=== PATIENT | male | born 1955 | race Two or more races ===

== ENCOUNTER 2017-01-28 11:11 | Inpatient (IN) | payer OTHER ==
--- NOTE | 2017-01-28 11:43 | PDOC ---
History of Present Illness - General History Source: Patient - History of Present Illness Initial Comments: 01/28/17 11:53 The patient is a 61-year-old male with a significant past medical history of hypertension and diabetes mellitus(non complaint with medications) who presents to the emergency department via EMS for further evaluation of altered mental status. As per EMS, the patient is homeless and was found inside someone's car. Patient's blood glucose was in the 300ss on the field and he was found to be hypertensive at 200/100 and upon ER arrival 190/90. As per patient, he knows his name and date of . He states that he is from [place] and was in [place] this morning. He states he walked to a school, looking for someone to charge his phone. He states that a school staff saw him and activated EMS. No other complaints. No fever, chills, generalized weakness. No chest pain, lightheadedness, dizziness, headache, visual changes. No cough, shortness of breath. No abdominal pain, nausea, vomiting, diarrhea. <Madeline Escobar - Last Filed: 01/28/17 14:44> <Mike Leiva - Last Filed: 01/28/17 14:48> - General Chief Complaint: Altered Mental Status Stated Complaint: Altered Mental Status Time Seen by Provider: 01/28/17 11:32 Past History <Madeline Escobar - Last Filed: 01/28/17 14:44> - Past Medical History Diabetes: Yes HTN: Yes - Immunization History Immunization Up to Date: Yes - Psycho/Social/Smoking Cessation Hx Suicidal Ideation: No Smoking History: Unknown if ever smoked Hx Alcohol Use: No Drug/Substance Use Hx: No <Mike Leiva - Last Filed: 01/28/17 14:48> - Past Medical History Allergies/Adverse Reactions: Allergies Allergy/AdvReac Type Severity Reaction Status Date / Time No Known Allergies Allergy Verified 01/28/17 11:21 Home Medications: Ambulatory Orders Unobtainable [Unobtainable] 01/28/17 Review of Systems - Review of Systems Able to Perform ROS?: Yes (limited by dementia) Constitutional: No: Chills, Fever Respiratory: No: Cough, Shortness of Breath Cardiac (ROS): No: Chest Pain, Lightheadedness ABD/GI: No: Diarrhea, Vomiting Neurological: No: Headache All Other Systems: Reviewed and Negative <Mike Leiva - Last Filed: 01/28/17 14:48> *Physical Exam - Vital Signs Last Vital Signs Temp Pulse Resp BP Pulse Ox 98.4 F 95 H 20 190/99 98 01/28/17 11:15 01/28/17 11:15 01/28/17 11:15 01/28/17 11:15 01/28/17 11:15 - Physical Exam Comments: 01/28/17 11:53 GENERAL: The patient is awake, alert. Jeans are cold and wet and smell of urine. HEAD: There is a healed surgical incisional scar in the parietal scalp. No bruising no abrasions no lacerations EYES: Pupils equal, round and reactive to light, extraocular movements intact, sclera anicteric, conjunctiva clear with no pallor. ENT: Ears normal, nares patent, oropharynx clear without exudates. Moist mucous membranes. NECK: Normal range of motion, supple without lymphadenopathy, JVD, or masses. LUNGS: Breath sounds equal, clear to auscultation bilaterally. No wheeze/ crackles. HEART: Regular rate and rhythm, normal S1 and S2 without murmur or rub. ABDOMEN: Soft/nontender/nondistended. BS wnl. No guarding or rebound. No palpable masses. No hepatosplenomegaly. EXTREMITIES: There is some discomfort is reproducbile with flexion of the left knee. No swelling, erythema or warmth. No focal bony tenderness. no edema. No clubbing or cyanosis. No cords. NEUROLOGICAL: Cranial nerves II through XII grossly intact. Normal speech. PSYCH: Normal mood, normal affect. SKIN: Warm, Dry, normal turgor, no rashes or lesions noted. <Madeline Escobar - Last Filed: 01/28/17 14:44> - Vital Signs Last Vital Signs Temp Pulse Resp BP Pulse Ox 98.4 F 95 H 20 190/99 98 01/28/17 11:15 01/28/17 11:15 01/28/17 11:15 01/28/17 11:15 01/28/17 11:15 <Mike Leiva - Last Filed: 01/28/17 14:48> Heart Score/ECG Review #1 ECG reviewed & interpreted by me at: 11:27 General ECG Interpretation: Sinus Rhythm, Normal Rate (90), Normal Intervals ( qtc 447, LVH), No acute ischemic changes (TWI III/AVF,) <Mike Leiva - Last Filed: 01/28/17 14:48> ED Treatment Course - LABORATORY CBC & Chemistry Diagram: 01/28/17 11:54 01/28/17 11:54 - RADIOLOGY Radiograph Interpretation: 01/28/17 14:42 EXAM: RAD/CHEST PA LAT IMPRESSION: Shallow inspiration. Uncoiled thoracic aorta. Prominent cardiac silhouette. No evidence of vascular congestion, pulmonary infiltrates, pleural effusion, or pneumothorax. No bulky hilar adenopathy is seen. EXAM: CT/HEAD CT WITHOUT CONTRAST IMPRESSION: Serial axial images of the brain were obtained from foramen magnum to the cranial vertex without intravenous contrast. The study was supplemented with computer-generated coronal and sagittal reconstruction images. Cap Coverer image was reviewed. There is no evidence of acute subarachnoid hemorrhage, acute intra -axial or extra-axial fluid collection consistent with subdural or epidural hematoma. No midline shift, herniation is present. Nonhemorrhagic hypodense late subacute to chronic lacunar infarct measuring 11 mm x 8.7 mm x 9.1 mm is seen in the anterior aspect of the right ganglia involving the anterior limb of right internal capsule, portion of the head of the caudate nucleus, adjacent putamen. There is no mass effect on the right frontal horn of lateral ventricle. On axial image #14, there is mild ipsilateral dilatation of the right frontal horn in comparison to the contralateral side. Normal swanson matter white matter differentiation. Cortical sulci sylvian fissures, perimesencephalic cisterns are not effaced. Loss of volume of the brain parenchyma with age-related involutional changes. Examination of the bone windows show no fracture. Mucosal thickening is observed in the right maxillary sinus with small air-fluid level. The visualized remaining paranasal sinuses and mastoid air cells are clear. <Madeline Escobar - Last Filed: 01/28/17 14:44> - LABORATORY CBC & Chemistry Diagram: 01/28/17 11:54 01/28/17 11:54 <Mike Leiva - Last Filed: 01/28/17 14:48> Medical Decision Making - Medical Decision Making 01/28/17 14:[address] Mckoy. 01/28/17 14:[address] Mckoy. Immediate response. Case was discussed. <Madeline Escobar - Last Filed: 01/28/17 14:44> - Medical Decision Making 01/28/17 12:44 A portion of this note was documented by scribe services under my direction. I have reviewed the details of the note, within reason, and agree with the documentation with the following case summary and management plan written by me. 61-year-old male reported history of diabetes and probable dementia brought in by EMS after found on street. Patient is not oriented, unable to give consistent story stating he lives in [place] but has been in [place] and was in a car to charge his cell phone. He has no complaints other than chronic L knee pain. VSS but elevated BP. exam nonfocal, slightly unkempt with wet/cold jeans that smell of urine neuro intact 61-year-old male with possible altered mental status, question underlying dementia. No evidence of trauma on exam, generally well-appearing but unkempt. Labs, urinalysis CT head, chest x-ray EKG EMS and [employer] contacted family in the area, who are on their way. Will obtain collateral history 01/28/17 13:23 White count 12.5, dehydration with presumed acute renal insufficiency with BUN of 44, creatinine 2.2, mild hyponatremia and hypochloremia. Troponin 0.08, slightly elevated alkaline phosphatase. Receiving IV fluids, awaiting CT head and chest x-ray, will require admission. 01/28/17 14:47 CT head and CXR wnl. Receiving IV fluids. Accepted for inpatient med/surg by Dr. Mckoy, weapons officer for medicine. <Mike Leiva - Last Filed: 01/28/17 14:48> *DC/Admit/Observation/Transfer - Attestations Scribe Attestion: 01/28/17 12:38 Documentation prepared by Madeline Escobar, acting as medical writer for Mike Leiva MD. <Madeline Escobar - Last Filed: 01/28/17 14:44> - Discharge Dispostion Admit: Yes <Mike Leiva - Last Filed: 01/28/17 14:48> Diagnosis at time of Disposition: Alteration consciousness, Acute renal insufficiency, Elevated troponin level - Discharge Dispostion Condition at time of disposition: Fair
[2017-01-28] MEDS ORDERED: SODIUM CHLORIDE 1,000 ML IV ONE (11:56)
[2017-01-28 12:20] LABS: BASOPHIL 0.6 % (0-2.0); MCHC 32.9 g/dl (32.0-35.9); MEAN CELL VOLUME 88.3 fl (80-96); MEAN PLT VOLUME 10.3 fl (7.5-11.1); NEUTROPHILS 85.8 % (42.8-82.8); PLATELET COUNT 212 K/MM3 (134-434); RDW 14.5 % (11.9-15.9); WHITE BLOOD COUNT 12.5 K/mm3 (4.0-10.0)
[2017-01-28 12:33] LABS: INR 0.98 (0.82-1.09); PROTHROMBIN TIME (PATIENT) 10.8 SEC (9.98-11.88)
[2017-01-28 13:00] LABS: BILIRUBIN,TOTAL 0.7 mg/dL (0.2-1.0); CALCIUM 8.9 mg/dL (8.5-10.1); CREATININE 2.2 mg/dL (0.7-1.3); TOT PROT 6.7 g/dl (6.4-8.2)
[2017-01-28 13:01] LABS: TROPONIN I 0.08 ng/ml (0.00-0.05)
[2017-01-28] MEDS ORDERED: ASPIRIN 81 MG CHEWABLE TABLETS PO ONE (14:17)
[2017-01-28] MEDS ORDERED: ASPIRIN 81 MG CHEWABLE TABLETS ONE (14:37)
--- NOTE | 2017-01-28 16:04 | EKG ---
Test Reason : Blood Pressure : / mmHG Vent. Rate : 090 BPM Atrial Rate : 090 BPM P-R Int : 176 ms QRS Dur : 090 ms QT Int : 366 ms P-R-T Axes : 065 023 -11 degrees QTc Int : 447 ms NORMAL SINUS RHYTHM MODERATE VOLTAGE CRITERIA FOR LVH, MAY BE NORMAL VARIANT T WAVE ABNORMALITY, CONSIDER INFERIOR ISCHEMIA ABNORMAL ECG NO PREVIOUS ECGS AVAILABLE Confirmed by MEKHI OLIVEROS MD ([id number]) on 01/28/2017 4:04:30 PM Referred By: Confirmed By:MEKHI OLIVEROS MD
[2017-01-28 17:43] VITALS: BMI 23.3
--- NOTE | 2017-01-28 19:57 | HP ---
[id number] History of Present Illness: 61-year-old male with a significant past medical history of hypertension and diabetes mellitus(non complaint with medications) who presents to the emergency department via EMS for further evaluation of altered mental status. As per EMS, the patient is homeless and was found inside someone's car. Patient's blood glucose was in the 300ss on the field and he was found to be hypertensive at 200 /100 and upon ER arrival 190/90. As per patient, he knows his name and date of . He states that he is from [place] and was in [place] this morning. He states he walked to a school, looking for someone to charge his phone. He states that a school staff saw him and activated EMS. No other complaints. - Past Medical History Cardiovascular: Yes: HTN Endocrine: Yes: Diabetes Mellitus - Smoking History Smoking history: Unknown if ever smoked - Alcohol/Substance Use Hx Alcohol Use: No Home Medications - Allergies Allergies/Adverse Reactions: Allergies Allergy/AdvReac Type Severity Reaction Status Date / Time No Known Allergies Allergy Verified 01/28/17 11:21 - Home Medications Home Medications: Ambulatory Orders Amlodipine Besylate [Norvasc -] 10 mg PO DAILY #30 tablet 01/31/17 Physical Examination Vital Signs: Vital Signs Temperature 98.2 F 01/28/17 19:00 Pulse Rate 88 01/28/17 19:00 Respiratory Rate 18 01/28/17 19:00 Blood Pressure 152/88 01/28/17 19:00 O2 Sat by Pulse Oximetry (%) 98 01/28/17 15:58 Constitutional: Yes: No Distress HENT: Yes: Atraumatic Neck: Yes: Supple Cardiovascular: Yes: Regular Rate and Rhythm Respiratory: Yes: CTA Bilaterally Gastrointestinal: Yes: Normal Bowel Sounds Extremities: Yes: WNL Neurological: Yes: Other (awake, talking) Problem List - Problems (1) Acute renal insufficiency Code(s): N28.9 - DISORDER OF KIDNEY AND URETER, UNSPECIFIED (2) Alteration consciousness Code(s): R40.4 - TRANSIENT ALTERATION OF AWARENESS Assessment/Plan Laboratory Tests 01/28/17 01/28/17 01/28/17 11:54 11:54 11:54 WBC 12.5 H RBC 4.94 Hgb 14.4 Hct 43.6 MCV 88.3 MCHC 32.9 RDW 14.5 Plt Count 212 MPV 10.3 Neutrophils % 85.8 H Lymphocytes % 11.1 Monocytes % 2.5 L Eosinophils % 0.0 Basophils % 0.6 INR 0.98 Sodium 133 L Potassium 5.1 Chloride 95 L Carbon Dioxide 22 Anion Gap 16 BUN 44 H Creatinine 2.2 H Creat Clearance w eGFR 30.38 Random Glucose 263 H Calcium 8.9 Total Bilirubin 0.7 AST 45 H ALT 24 Alkaline Phosphatase 124 H Creatine Kinase 541 H Creatine Kinase Index 2.5 CK-MB (CK-2) 13.730 H CK-MB (CK-2) Rel Index Troponin I 0.08 H Total Protein 6.7 Albumin 3.0 L 01/28/17 11:54 WBC RBC Hgb Hct MCV MCHC RDW Plt Count MPV Neutrophils % Lymphocytes % Monocytes % Eosinophils % Basophils % INR Sodium Potassium Chloride Carbon Dioxide Anion Gap BUN Creatinine Creat Clearance w eGFR Random Glucose Calcium Total Bilirubin AST ALT Alkaline Phosphatase Creatine Kinase Creatine Kinase Index CK-MB (CK-2) CK-MB (CK-2) Rel Index Cancelled Troponin I Total Protein Albumin 1.htn will start him on meds cardiology consult cardiac profile 2.dm? bgms insulin coverage fu labs social work consult dvt ppx
[2017-01-28 22:06] LABS: TROPONIN I 0.14 ng/ml (0.00-0.05)
[2017-01-28] MEDS: INSULIN SLIDING SCALE (NOVOLOG) 1 VIAL SQ SCH (22:11)
[2017-01-28 23:24] LABS: URINE APPEARANCE SLCLOUDY; URINE BILIRUBIN NEGATIVE (NEGATIVE); URINE BLOOD 1+ (NEGATIVE); URINE COLOR LTYELLOW; URINE GLUCOSE (UA) 3+ (NEGATIVE); URINE KETONE NEGATIVE (NEGATIVE); URINE LEUK ESTERASE NEGATIVE (NEGATIVE); URINE NITRITE NEGATIVE (NEGATIVE); URINE PROTEIN 2+ (NEGATIVE); URINE UROBILINOGEN NEGATIVE E.U./dl (0.2-1.0)
[2017-01-28 23:50] LABS: URINE HYALINE CAST 9 /lpf; URINE MUCUS RARE; URINE RBC 1 /hpf (0-3); URINE WBC 4 /hpf (3-5)
[2017-01-29] MEDS: INSULIN SLIDING SCALE (NOVOLOG) 1 VIAL SQ SCH ×4 (06:07→22:14)
[2017-01-29] MEDS ORDERED: amLODIPine BESYLATE 10 MG TABLET (FP) PO ONE (07:15)
[2017-01-29] MEDS ORDERED: PT OWN MED DRAWER 7, Y5N ONE (11:59)
[2017-01-29] MEDS ORDERED: INSULIN (NOVOLOG) ASPART 100 UNITS/ML 10ML VIAL ONE (11:59)
--- NOTE | 2017-01-29 18:55 | PN ---
Progress Note, Physician - Current Medication List Current Medications: Active Medications Amlodipine Besylate (Norvasc -) 10 mg PO DAILY [facility] Insulin Aspart (Novolog Vial Sliding Scale -) 1 vial SQ ACHS [facility] PRN Reason: Protocol Last Admin: 01/29/17 17:20 Dose: 8 unit - Objective Vital Signs: Vital Signs Temperature 98.5 F 01/29/17 18:34 Pulse Rate 96 H 01/29/17 18:34 Respiratory Rate 18 01/29/17 18:34 Blood Pressure 191/106 01/29/17 18:34 O2 Sat by Pulse Oximetry (%) 98 01/29/17 10:00 Constitutional: Yes: No Distress HENT: Yes: Atraumatic Neck: Yes: Supple Cardiovascular: Yes: Regular Rate and Rhythm Respiratory: Yes: CTA Bilaterally Gastrointestinal: Yes: Normal Bowel Sounds Extremities: Yes: WNL Labs: INR, PTT INR 0.98 (0.82-1.09) 01/28/17 11:54 Problem List - Problems (1) Acute renal insufficiency Code(s): N28.9 - DISORDER OF KIDNEY AND URETER, UNSPECIFIED (2) Alteration consciousness Code(s): R40.4 - TRANSIENT ALTERATION OF AWARENESS Assessment/Plan 1.HTN STARTED ON NORVASC WILL GET CARDIOLOGY INVOLVED
[2017-01-30] MEDS: INSULIN SLIDING SCALE (NOVOLOG) 1 VIAL SQ SCH ×4 (06:57→22:04)
--- NOTE | 2017-01-30 08:28 | CON.CARD ---
Consult Consult Specialty:: cardiology Reason for Consultation:: ?alered mental status; DM; HTN; elevated TNI; ?CRF - History of Present Illness Chief Complaint: Pt alert to time and person History of Present Illness: The patient is a 61-year-old male with a significant past medical history of hypertension and diabetes mellitus(non complaint with medications) who presents to the emergency department via EMS for further evaluation of altered mental status. As per EMS, the patient is homeless and was found inside someone's car. Patient's blood glucose was in the 300ss on the field and he was found to be hypertensive at 200/100 and upon ER arrival 190/90. As per patient, he knows his name and date of . He states that he is from [place] and was in [place] this morning. He states he walked to a school, looking for someone to charge his phone. He states that a school staff saw him and activated EMS. No other complaints. No fever, chills, generalized weakness. No chest pain, lightheadedness, dizziness, headache, visual changes. No cough, shortness of breath. No abdominal pain, nausea, vomiting, diarrhea. - History Source History Provided By: Medical Record Limitations to Obtaining History: Poor Historian - Past Medical History Cardio/Vascular: Yes: HTN Endocrine: Yes: Diabetes Mellitus - Alcohol/Substance Use Hx Alcohol Use: No - Smoking History Smoking history: Unknown if ever smoked Home Medications - Allergies Allergies/Adverse Reactions: Allergies Allergy/AdvReac Type Severity Reaction Status Date / Time No Known Allergies Allergy Verified 01/28/17 11:21 - Home Medications Home Medications: Ambulatory Orders Unobtainable [Unobtainable] 01/28/17 Vital Signs: Vital Signs Temperature 98.4 F 01/30/17 06:00 Pulse Rate 71 01/30/17 06:00 Respiratory Rate 18 01/30/17 06:00 Blood Pressure 139/61 01/30/17 06:00 O2 Sat by Pulse Oximetry (%) 93 L 01/29/17 21:00 - Other Data Labs, Other Data: INR, PTT INR 0.98 (0.82-1.09) 01/28/17 11:54 Problem List - Problems (1) Alteration consciousness Code(s): R40.4 - TRANSIENT ALTERATION OF AWARENESS (2) Elevated troponin Assessment/Plan: f/u serially; may be secondary to renal dysfunction, but pt has cardiac risks, and EKG not completely normal. f/u EKG F/u ECHO for LVEF. Lipid profile; TSH; HGBA1c. Consider coronary artery evaluation when stable. Code(s): R74.8 - ABNORMAL LEVELS OF OTHER SERUM ENZYMES (3) Diabetes Code(s): E11.9 - TYPE 2 DIABETES MELLITUS WITHOUT COMPLICATIONS (4) HTN (hypertension) Assessment/Plan: On amlodipine; f/u BP serially. (Would consider ACEI, given HTN and DM, but renal dysfunction and high K+ preclude this presently). Code(s): I10 - ESSENTIAL (PRIMARY) HYPERTENSION
[2017-01-30] MEDS: amLODIPine BESYLATE 10 MG TABLET (FP) PO SCH (09:11)
[2017-01-30 09:39] LABS: CALCIUM 8.5 mg/dL (8.5-10.1); CREATININE 1.5 mg/dL (0.7-1.3)
[2017-01-30 09:41] LABS: TROPONIN I 0.09 ng/ml (0.00-0.05)
--- NOTE | 2017-01-30 11:22 | PN ---
Progress Note, Physician History of Present Illness: The patient is a 61-year-old male with a significant past medical history of hypertension and diabetes mellitus(non complaint with medications) who presents to the emergency department via EMS for further evaluation of altered mental status. As per EMS, the patient is homeless and was found inside someone's car. Patient's blood glucose was in the 300ss on the field and he was found to be hypertensive at 200/100 and upon ER arrival 190/90. As per patient, he knows his name and date of . He states that he is from [place] and was in [place] this morning. He states he walked to a school, looking for someone to charge his phone. He states that a school staff saw him and activated EMS. No other complaints. - Current Medication List Current Medications: Active Medications Amlodipine Besylate (Norvasc -) 10 mg PO DAILY [facility] Last Admin: 01/30/17 09:11 Dose: 10 mg Insulin Aspart (Novolog Vial Sliding Scale -) 1 vial SQ ACHS [facility] PRN Reason: Protocol Last Admin: 01/30/17 06:57 Dose: 4 unit - Objective Vital Signs: Vital Signs Temperature 96.3 F L 01/30/17 08:59 Pulse Rate 80 01/30/17 09:45 Respiratory Rate 20 01/30/17 09:45 Blood Pressure 174/113 01/30/17 09:45 O2 Sat by Pulse Oximetry (%) 93 L 01/29/17 21:00 Eyes: Yes: WNL, Conjunctiva Clear, EOM Intact HENT: Yes: WNL, Atraumatic, Normocephalic Neck: Yes: WNL, Supple, Trachea Midline Cardiovascular: Yes: WNL, Regular Rate and Rhythm Respiratory: Yes: WNL, Regular, CTA Bilaterally Gastrointestinal: Yes: WNL, Normal Bowel Sounds Genitourinary: Yes: WNL Musculoskeletal: Yes: WNL Extremities: Yes: WNL Edema: No Integumentary: Yes: WNL Neurological: Yes: WNL, Alert, Oriented ...Motor Strength: WNL Psychiatric: Yes: WNL Labs: CBC, BMP 01/30/17 08:45 INR, PTT INR 0.98 (0.82-1.09) 01/28/17 11:54 Assessment/Plan (1) Alteration consciousness Code(s): R40.4 - TRANSIENT ALTERATION OF AWARENESS (2) Elevated troponin Assessment/Plan: f/u serially; may be secondary to renal dysfunction, but pt has cardiac risks, and EKG not completely normal. f/u EKG F/u ECHO for LVEF. Lipid profile; TSH; HGBA1c. Consider coronary artery evaluation when stable. Code(s): R74.8 - ABNORMAL LEVELS OF OTHER SERUM ENZYMES (3) Diabetes Code(s): E11.9 - TYPE 2 DIABETES MELLITUS WITHOUT COMPLICATIONS (4) HTN (hypertension) Assessment/Plan: On amlodipine; f/u BP serially. (Would consider ACEI, given HTN and DM, but renal dysfunction and high K+ preclude this presently). Code(s): I10 - ESSENTIAL (PRIMARY) HYPERTENSION
--- NOTE | 2017-01-30 11:29 | EKG ---
Test Reason : Blood Pressure : / mmHG Vent. Rate : 077 BPM Atrial Rate : 077 BPM P-R Int : 180 ms QRS Dur : 094 ms QT Int : 382 ms P-R-T Axes : 066 033 -25 degrees QTc Int : 432 ms NORMAL SINUS RHYTHM VOLTAGE CRITERIA FOR LEFT VENTRICULAR HYPERTROPHY CANNOT RULE OUT SEPTAL INFARCT , AGE UNDETERMINED T WAVE ABNORMALITY, CONSIDER INFERIOR ISCHEMIA ABNORMAL ECG WHEN COMPARED WITH ECG OF 28-JAN-2017 11:27, MINIMAL CRITERIA FOR SEPTAL INFARCT ARE NOW PRESENT Confirmed by KEM DON MD ([id number]) on 01/30/2017 11:29:00 AM Referred By: Carrillo VILLATORO Confirmed By:KEM DON MD
--- NOTE | 2017-01-30 16:53 | PN ---
Progress Note, Physician - Current Medication List Current Medications: Active Medications Amlodipine Besylate (Norvasc -) 10 mg PO DAILY [facility] Last Admin: 01/30/17 09:11 Dose: 10 mg Insulin Aspart (Novolog Vial Sliding Scale -) 1 vial SQ ACHS [facility] PRN Reason: Protocol Last Admin: 01/30/17 12:22 Dose: 8 unit - Objective Vital Signs: Vital Signs Temperature 99 F 01/30/17 13:24 Pulse Rate 84 01/30/17 14:50 Respiratory Rate 18 01/30/17 14:50 Blood Pressure 163/96 01/30/17 14:50 O2 Sat by Pulse Oximetry (%) 98 01/30/17 08:28 Constitutional: Yes: No Distress HENT: Yes: Atraumatic Neck: Yes: Supple Cardiovascular: Yes: Regular Rate and Rhythm Respiratory: Yes: CTA Bilaterally Gastrointestinal: Yes: Normal Bowel Sounds Extremities: Yes: WNL Neurological: Yes: Alert, Oriented Labs: CBC, BMP 01/30/17 08:45 INR, PTT INR 0.98 (0.82-1.09) 01/28/17 11:54 Problem List - Problems (1) Acute renal insufficiency Code(s): N28.9 - DISORDER OF KIDNEY AND URETER, UNSPECIFIED (2) Alteration consciousness Code(s): R40.4 - TRANSIENT ALTERATION OF AWARENESS Assessment/Plan 1.HTN...uncontrolled STARTED ON NORVASC better today echo done report seen dc planning for tomorrow
[2017-01-31] MEDS: INSULIN SLIDING SCALE (NOVOLOG) 1 VIAL SQ SCH ×3 (06:14→16:58)
[2017-01-31] MEDS: amLODIPine BESYLATE 10 MG TABLET (FP) PO SCH (09:32)
[2017-01-31 14:14] VITALS: PULSE 80
--- NOTE | 2017-01-31 18:18 | DS ---
Physical Examination Vital Signs: Vital Signs Temperature 98.5 F 01/31/17 14:13 Pulse Rate 80 01/31/17 14:13 Respiratory Rate 17 01/31/17 14:13 Blood Pressure 162/90 01/31/17 14:13 O2 Sat by Pulse Oximetry (%) 98 01/31/17 09:00 Constitutional: Yes: No Distress HENT: Yes: Atraumatic Neck: Yes: Supple Cardiovascular: Yes: Regular Rate and Rhythm Respiratory: Yes: CTA Bilaterally Gastrointestinal: Yes: Normal Bowel Sounds Extremities: Yes: WNL Labs: CBC, BMP 01/30/17 08:45 Discharge Summary Reason For Visit: ALTERED LEVEL OF CONSCIOUSNESS,ACUTE RENAL INSUFFI Current Active Problems Acute renal insufficiency (Acute) Alteration consciousness (Acute) Diabetes (Acute) Elevated troponin (Acute) HTN (hypertension) (Acute) Condition: Fair - Home Medications Comprehensive Discharge Medication List: Ambulatory Orders Amlodipine Besylate [Norvasc -] 10 mg PO DAILY #30 tablet 01/31/17 ks home
[2017-01-31 19:01] VITALS: BP 185/96; TEMP 98.2
== END 2017-01-31 19:35 | disposition home or self-care (01) | DRG 422 ==
LOC: JER 11:11 → JERBED 14:48 → J5S 16:46
PROVIDERS: ADMIT Internal Medicine; ATTEND Internal Medicine
DX: E86.0 Dehydration (principal); N28.9 Disorder of kidney and ureter, unspecified; Z59.0 Homelessness; E11.9 Type 2 diabetes mellitus without complications; Z79.84 Long term (current) use of oral hypoglycemic drugs; Z91.14 Patient's other noncompliance with medication regimen; R74.8 Abnormal levels of other serum enzymes; I10 Essential (primary) hypertension
CPT/HCPCS: 36415; 70450-TC; 71020-TC; 80048; 80053; 80061; 81003; 81015; 82550; 82553; 83036; 83721; 84443; 84484; 85025; 85610; 87086; 93005; 93010; 93306-TC; 99284-25